=== PATIENT | female | born 1960 | race Two or more races ===

== ENCOUNTER 2017-08-07 14:24 | Emergency (ER) | payer OTHER ==
[~2017-08-07] VITALS: Ht 157.5 cm; Wt 95.3 kg
[~2017-08-07 14:24] MED LIST: ATROVENT 00.5 MG/2.5 IH; AZITHROMYCIN250 MG PO; CELEBREX100 MG PO; CLARITIN10 M1 PO; ECOTRIN81 MG; GLIPIZIDE2.5 MG/BOT; KOMBIGLYZE XR1 EAC2; LASIX20 MG; LIPITOR20 MG; LOPRESSOR25 MG; MEDROL8 MG; PROVENTIL0.5 ML/2.5 IH; SKELAXIN800 MG PO; TESSALON PERLE100 MG; TRULICITY0.75 MG/0.; TUSNEL C SYRUP473 ML; URETRON DS1 TAB PO; VASOTEC10 MG
[2017-08-07] MEDS ORDERED: METFORMIN HCL850 MG (15:00)
[2017-08-07] MEDS ORDERED: CLONAZEPAM1 MG (15:01)
== END 2017-08-07 18:21 | disposition home or self-care (01) ==
LOC: ER 14:24
DX: N89.8 Other specified noninflammatory disorders of vagina (principal)

== ENCOUNTER → 2018-08-04 | Emergency (ER) | payer OTHER ==
[~2018-08-04] VITALS: Ht 162.6 cm; Wt 99.8 kg
[~2018-08-04] MED LIST changes: +CLONAZEPAM1 MG; +METFORMIN HCL850 MG
== END | disposition home or self-care (01) ==
LOC: ER 10:37
DX: K52.9 Noninfective gastroenteritis and colitis, unspecified (principal)

== ENCOUNTER 2018-12-04 14:13 | Emergency (ER) | payer OTHER ==
[~2018-12-04] VITALS: Ht 162.6 cm; Wt 98.9 kg
[2018-12-04] MEDS ORDERED: LEVAQUIN500 MG PO (14:27)
== END 2018-12-04 16:23 | disposition home or self-care (01) ==
LOC: ER 14:13
DX: B34.9 Viral infection, unspecified (principal); R05 Cough; R06.02 Shortness of breath

== ENCOUNTER 2020-03-17 10:48 | Emergency (ER) | payer OTHER ==
[~2020-03-17] VITALS: Ht 152.4 cm; Wt 97.1 kg
[~2020-03-17 10:48] MED LIST changes: +LEVAQUIN500 MG PO
== END 2020-03-17 12:57 | disposition home or self-care (01) ==
LOC: ER 10:48
DX: M54.2 Cervicalgia (principal); M62.838 Other muscle spasm

== ENCOUNTER 2020-10-13 22:48 | Emergency (ER) | payer OTHER ==
[~2020-10-13] VITALS: Ht 162.6 cm; Wt 97.5 kg
== END 2020-10-14 00:36 | disposition home or self-care (01) ==
LOC: ER 22:48
DX: R53.81 Other malaise (principal); R06.02 Shortness of breath; R07.89 Other chest pain; Z03.818 Encounter for observation for suspected exposure to other biological agents ruled out

== ENCOUNTER 2021-06-13 23:57 | Emergency (ER) | payer OTHER ==
[~2021-06-13] VITALS: Ht 157.5 cm; Wt 98.0 kg
[2021-06-14] MEDS ORDERED: CIPROFLOXACIN500 MG PO (05:32)
[2021-06-14] MEDS ORDERED: INTESTINEX680 M1 PO (05:32)
[2021-06-14] MEDS ORDERED: PEPCID AC20 MG PO ×2 (05:32→05:33)
[2021-06-14] MEDS ORDERED: CARAFATE1 GM PO (05:43)
== END 2021-06-14 06:14 | disposition home or self-care (01) ==
LOC: ER 23:57
DX: R10.84 Generalized abdominal pain (principal); R19.7 Diarrhea, unspecified; N39.0 Urinary tract infection, site not specified; I10 Essential (primary) hypertension; E11.9 Type 2 diabetes mellitus without complications; Z79.84 Long term (current) use of oral hypoglycemic drugs

== ENCOUNTER 2022-04-15 13:12 | Emergency (ER) | payer OTHER ==
[~2022-04-15] VITALS: Ht 162.6 cm; Wt 99.3 kg
[~2022-04-15 13:12] MED LIST changes: +CARAFATE1 GM PO; +CIPROFLOXACIN500 MG PO; +INTESTINEX680 M1 PO; +PEPCID AC20 MG PO
[2022-04-15] MEDS ORDERED: GLUMETZA500 MG PO (14:11)
[2022-04-15] MEDS ORDERED: GLIPIZIDE ER2.5 MG PO (14:12)
[2022-04-15] MEDS ORDERED: ADULT LOW DOSE81 M1 PO (14:12)
== END 2022-04-15 19:42 | disposition home or self-care (01) ==
LOC: ER 13:12
DX: J06.9 Acute upper respiratory infection, unspecified (principal); Z20.822 Contact with and (suspected) exposure to COVID-19

== ENCOUNTER 2023-05-06 09:24 | Emergency (ER) | payer OTHER ==
[~2023-05-06] VITALS: Ht 162.6 cm; Wt 94.8 kg
[~2023-05-06 09:24] MED LIST changes: +ADULT LOW DOSE81 M1 PO; +GLIPIZIDE ER2.5 MG PO; +GLUMETZA500 MG PO
[2023-05-06] MEDS ORDERED: DEXAMETHASONE SODIUM PHOSPHATE 4 MG/ML VIAL IM STA (10:06)
[2023-05-06] MEDS ORDERED: ORPHENADRINE CITRATE 30 MG/ML AMPUL IM STA (10:07)
[2023-05-06 11:18] LABS: URINE APPEARANCE Cloudy; URINE BILIRRUBIN Negative (NEGATIVE); URINE BLOOD Negative; URINE COLOR Yellow; URINE GLUCOSE Negative (NEGATIVE); URINE LEUKOCYTE Negative; URINE NITRATE Negative; URINE PROTEIN Negative (NEGATIVE); URINE UROBILINOGEN 0.2 E.U./dl
[2023-05-06 11:22] LABS: URINE BACTERIA 1034.3 uL (0.0-1933); URINE EPITHELIAL CELLS 102.9 uL (0.0-38.8); URINE RBC 37.2 uL (0.0-20.8); URINE WBC 15.1 uL (0.0-23.2)
[2023-05-06 11:29] LABS: HEMATOCRIT 40.2 % (36.0-45.00); MEAN CELL VOLUME 83.7 fL (80.00-100.00); MEAN CORPUSCULAR HEMOGLOBIN 27.1 pg (27.00-32.0); MEAN CORPUSCULAR HGB CONC 32.4 g/dl (32.0-36.0); PLATELET COUNT 421 K/uL (150-450); RED CELL DISTRIBUTION WIDTH 14.7 % (11.5-14.5)
[2023-05-06 11:41] LABS: ALBUMIN 3.6 gm/dL (3.4-5.0); BILIRUBIN TOTAL 0.72 mg/dL (0.3-1.2); CALCIUM 9.6 mg/dL (8.5-10.1); CREATININE SERUM 0.85 mg/dL (0.55-1.02); GFR 67.33; POTASSIUM 4.08 mEq/L (3.5-5.1); TOTAL PROTEIN 7.6 gm/dL (6.4-8.2)
[2023-05-06 11:47] LABS: URINE MUCUS MODERATE; URINE YEAST FEW /hpf
[2023-05-06] MEDS ORDERED: NAPROXEN SODIU500 M1 PO (12:52)
[2023-05-06] MEDS ORDERED: TAMS0.4C PO (12:52)
== END 2023-05-06 13:50 | disposition home or self-care (01) ==
LOC: ER 09:24
PROVIDERS: General Practice
DX: M54.9 Dorsalgia, unspecified (principal); N20.0 Calculus of kidney; M19.90 Unspecified osteoarthritis, unspecified site; I10 Essential (primary) hypertension; M79.7 Fibromyalgia; K57.30 Diverticulosis of large intestine without perforation or abscess without bleeding
CPT/HCPCS: 36415; 74176; 96372; 99284; J1100; J2360

== ENCOUNTER 2023-10-02 10:09 | Emergency (ER) | payer OTHER ==
[~2023-10-02] VITALS: Ht 157.5 cm; Wt 94.8 kg
[~2023-10-02 10:09] MED LIST changes: +NAPROXEN SODIU500 M1 PO; +TAMS0.4C PO
[2023-10-02] MEDS ORDERED: KETOROLAC TROMETHAMINE 60 MG VIAL IM ONE ×2 (12:59→13:00)
[2023-10-02 13:27] LABS: HEMATOCRIT 38.4 % (36.0-45.00); HEMOGLOBIN 12.6 g/dL (12.0-15.00); MEAN CORPUSCULAR HEMOGLOBIN 27.7 pg (27.00-32.0); PLATELET COUNT 400 K/uL (150-450); RED BLOOD COUNT 4.57 M/uL (4.00-6.00); RED CELL DISTRIBUTION WIDTH 15.2 % (11.5-14.5)
[2023-10-02] MEDS ORDERED: CEFTRIAXONE SODIUM 1,000 MG VIAL ONE (14:54)
[2023-10-02] MEDS ORDERED: CEFTRIAXONE SODIUM 1,000 MG VIAL IM ONE (15:00)
== END 2023-10-02 14:57 ==
LOC: ER 10:10
PROVIDERS: General Practice
DX: R53.81 Other malaise (principal); H66.92 Otitis media, unspecified, left ear; Z20.822 Contact with and (suspected) exposure to COVID-19; I10 Essential (primary) hypertension; E11.9 Type 2 diabetes mellitus without complications; Z79.84 Long term (current) use of oral hypoglycemic drugs

== ENCOUNTER 2023-10-25 09:45 | Emergency (ER) | payer OTHER ==
[~2023-10-25] VITALS: Ht 162.6 cm; Wt 91.6 kg
[2023-10-25] MEDS ORDERED: 0.9 % SODIUM CHLORIDE 500 ML IV ONE (10:45)
[2023-10-25] MEDS ORDERED: ONDANSETRON HCL 2 MG/ML VIAL IV ONE (10:45)
[2023-10-25] MEDS ORDERED: FAMOtidine 10 MG/ML (4ML VIAL) IV ONE (10:45)
[2023-10-25] MEDS ORDERED: ONDANSETRON HCL 2 MG/ML VIAL ONE (10:51)
[2023-10-25] MEDS ORDERED: FAMOTIDINE/PF 20 MG/2 ML VIAL ONE (10:52)
[2023-10-25 11:55] LABS: HEMATOCRIT 40.1 % (36.0-45.00); HEMOGLOBIN 12.9 g/dL (12.0-15.00); MEAN CELL VOLUME 83.1 fL (80.00-100.00); MEAN CORPUSCULAR HEMOGLOBIN 26.6 pg (27.00-32.0); PLATELET COUNT 429 K/uL (150-450); RED BLOOD COUNT 4.83 M/uL (4.00-6.00); RED CELL DISTRIBUTION WIDTH 15.6 % (11.5-14.5)
[2023-10-25] MEDS ORDERED: PEPCID AC20 MG PO (14:23)
== END 2023-10-25 14:38 | disposition home or self-care (01) ==
LOC: ER 09:46
PROVIDERS: General Practice
DX: K29.70 Gastritis, unspecified, without bleeding (principal); J45.909 Unspecified asthma, uncomplicated; E78.00 Pure hypercholesterolemia, unspecified; I10 Essential (primary) hypertension; E11.9 Type 2 diabetes mellitus without complications; Z79.84 Long term (current) use of oral hypoglycemic drugs
CPT/HCPCS: 36415; 96365; 99282; J2405; J3490; J7042

== ENCOUNTER 2024-08-28 12:15 | Emergency (ER) | payer OTHER ==
[~2024-08-28] VITALS: Ht 157.5 cm; Wt 89.8 kg
[2024-08-28] MEDS ORDERED: ZOCOR20 MG (13:07)
[2024-08-28] MEDS ORDERED: BARIUM SULFATE 450 ML ORAL.SUSP PO ONE (13:21)
[2024-08-28 14:26] LABS: CALCIUM 10.6 mg/dL (8.5-10.1); CREATININE SERUM 1.16 mg/dL (0.55-1.02); GFR 46.88; POTASSIUM 4.28 mEq/L (3.5-5.1)
[2024-08-28 14:33] LABS: URINE APPEARANCE Cloudy; URINE BILIRRUBIN Negative (NEGATIVE); URINE BLOOD Negative; URINE COLOR Yellow; URINE GLUCOSE Negative (NEGATIVE); URINE KETONE Trace (NEGATIVE); URINE LEUKOCYTE Negative; URINE NITRATE Negative; URINE PROTEIN Trace (NEGATIVE)
[2024-08-28 14:34] LABS: URINE BACTERIA 121.1 uL (0.0-1933); URINE EPITHELIAL CELLS 159.2 uL (0.0-38.8); URINE RBC 67.4 uL (0.0-20.8); URINE WBC 17.4 uL (0.0-23.2)
[2024-08-28 14:46] LABS: TYPE CELLS SQUAMOUS; URINE CAST 0.29 uL (0.0-1.40); URINE YEAST FEW /hpf
[2024-08-28 15:12] LABS: BASO % 0.7 % (0.1-1.2); EOS # 0.23 (0.04-0.54); EOS % 1.6 % (0.7-7.0); HEMATOCRIT 41.3 % (34.1-44.9); HEMOGLOBIN 12.8 g/dL (11.2-15.7); LYMPH # 2.58 (1.18-3.74); LYMPH % 17.5 % (19.3-53.1); MEAN CORPUSCULAR HEMOGLOBIN 26.8 pg (25.6-32.2); MONO % 6.1 % (4.7-12.5); NEUT # 10.87 (1.56-6.13); NEUT % 73.7 % (34.0-71.1); PLATELET COUNT 466 K/uL (163-369); RED BLOOD COUNT 4.78 M/uL (3.93-5.22); RED CELL DISTRIBUTION WIDTH 14.1 % (11.6-14.4)
[2024-08-28] MEDS ORDERED: METRONIDAZOLE500 MG PO (17:43)
[2024-08-28] MEDS ORDERED: LEVSIN/SL0.125 MG SL (17:43)
[2024-08-28] MEDS ORDERED: CIPRO500 MG PO (17:43)
[2024-08-28] MEDS ORDERED: ZOVIRAX800 MG PO (17:43)
[2024-08-28] MEDS ORDERED: PROBIOTIC1 EAC2 PO (17:45)
== END 2024-08-28 17:56 | disposition home or self-care (01) ==
LOC: ER 12:15
PROVIDERS: Emergency Medicine
DX: B02.9 Zoster without complications (principal); K57.30 Diverticulosis of large intestine without perforation or abscess without bleeding; E11.9 Type 2 diabetes mellitus without complications; Z79.84 Long term (current) use of oral hypoglycemic drugs; I10 Essential (primary) hypertension; I70.8 Atherosclerosis of other arteries